=== PATIENT | male | born 1970 | race Caucasian/White ===

== ENCOUNTER → 2017-10-07 | Outpatient (CLI) | payer OTHER ==
[~2017-10-07] MED LIST: IOPAMIDOL (ISOVUE-300) 100 ML BTL ONE
== END ==
LOC: FIMAGING 13:44
PROVIDERS: ATTEND Internal Medicine
DX: R10.9 Unspecified abdominal pain (principal)
CPT/HCPCS: Q9967

== ENCOUNTER → 2018-08-18 | Outpatient (CLI) | payer OTHER | LOC: BMCIMAGING 14:01 | PROVIDERS: ATTEND Internal Medicine | DX: M25.511 Pain in right shoulder (principal) ==

== ENCOUNTER → 2018-09-17 | Outpatient (CLI) | payer OTHER | LOC: BMCIMAGING 08:32 | PROVIDERS: ATTEND Orthopaedic Surgery Hand Surgery | DX: S42.251D Displaced fracture of greater tuberosity of right humerus, subsequent encounter for fracture with routine healing (principal) ==